=== PATIENT | male | born 1950 | race Caucasian/White ===

== ENCOUNTER 2018-01-16 09:55 | Day surgery (SDC) | payer OTHER, MEDICARE ==
[~2018-01-16] VITALS: Ht 182.9 cm; Wt 136.1 kg
[~2018-01-16 09:55] MED LIST: ALPHA LIPOIC A200 M1 PO; ASPIRIN325 MG PO; COLCHICINE0.6 M1 PO; GABAPENTIN100 MG PO; HYDROCHLOROTHIA25 MG PO; LIPITOR40 MG PO; LISINOPRIL20 MG PO; METFORMIN HCL1000 MG PO; NITROSTAT0.4 MG SL; OMEPRAZOLE20 MG PO; VITAMIN B122500 MCG PO; VITAMIN D250000 UNIT PO
--- NOTE | 2018-01-16 13:16 | NUR ---
01/16/18 1316 Susan Carbajal 1253 PT ARRIVED IN PACU AWAKE WITH NO C/O'S. ABD SOFT AND PASSING FLATUS. 1315 SIPPING ON WATER.
--- NOTE | 2018-01-17 07:57 | OR ---
[facility] [address] [place], [place] [address] Signed DATE OF OPERATION: 01/16/2018 SURGEON: Shamir Pedro MD PREOPERATIVE DIAGNOSIS: Personal history of colonic polyps. POSTOPERATIVE DIAGNOSIS: Minimal to moderate sigmoid diverticulosis. PROCEDURE: Colonoscopy without biopsy. ESTIMATED BLOOD LOSS: None. INDICATIONS: Gaston is a 67-year-old gentleman, who was asked to see me for a followup colonoscopy. He spoke of a colonoscopy number of years ago in the [facility]. More recently, he had one at the [facility] in [place], [place]. The doctor at the [facility] wanted him back in a couple of years. The doctors moved out of our area. Consequently, however, was asked to see me with respect to the above. He said he has no lower GI complaints. In the office, I gave him a pamphlet on colonoscopy. We looked at that together along with the risks and benefits including, but not limited to gas bloating, crampy abdominal pain, bleeding, perforation, requiring surgery, and missed diagnosis. We also discussed the need for IV conscious sedation. Gaston is a large man with a heavy full face, very thick neck. He has obstructive sleep apnea with CPAP and likes to drink up to 10 beers a day. Consequently, we asked an anesthesia provider to help us with increased monitoring and sedation with propofol. He had expressed understanding and wished to proceed. PROCEDURE NOTE: Gaston was taken into our endoscopy suite and placed in the left lateral decubitus position. He was given IV sedation with propofol per nurse credit report checker. A digital rectal exam was performed and I could barely reach the bottom of the prostate gland because Gaston is a large man with large buttocks. The adult colonoscope was then introduced and advanced all around into the cecum under direct visualization of camera without difficulty. His prep was average. The scope was then slowly withdrawn. We saw diverticula in the sigmoid colon. They were moderate in size and minimal to moderate in number, and scattered about. The rectum was unremarkable. Upon retroflexion of the Electronically Signed By: SHAMIR PEDRO MD 01/17/18 0757 PATIENT NAME: GASTON MINA OPERATIVE REPORT DATE OF : 46 REPORT #: [id number] PHYSICIAN: SHAMIR PEDRO MD PCP: SIDNEY HERNANDEZ MD REPORT IS CONFIDENTIAL AND NOT TO BE RELEASED WITHOUT AUTHORIZATION [address] [address] Signed scope, he has a couple tiny internal anal skin tags. After this, the gas was suctioned out and colonoscope removed. Gaston tolerated the procedure quite well. RECOMMENDATIONS: Gaston can follow up in 5 years for repeat colonoscopy due to his personal history of colonic polyps. Shamir Pedro MD ALB/MODL /[id number] cc: MD Sidney Ng MD Copies: SHAMIR PEDRO MD, MALCOLM MD ~ Electronically Signed By: SHAMIR PEDRO MD 01/17/18 0757 PATIENT NAME: GASTON MINA CHRIST OPERATIVE REPORT DATE OF : 46 REPORT #: [id number] PHYSICIAN: SHAMIR PEDRO MD PCP: SIDNEY HERNANDEZ MD REPORT IS CONFIDENTIAL AND NOT TO BE RELEASED WITHOUT AUTHORIZATION
== END 2018-01-16 13:16 | disposition home or self-care (01) ==
LOC: OPS 09:55 → DS 09:55 → OPS 10:45
PROVIDERS: Colon & Rectal Surgery
PROC: 0DJD8ZZ Inspection of Lower Intestinal Tract, Via Natural or Artificial Opening Endoscopic (ICD-10-PCS; principal; 2018-01-16 13:15)
DX: Z12.11 Encounter for screening for malignant neoplasm of colon (principal); K57.30 Diverticulosis of large intestine without perforation or abscess without bleeding; K64.4 Residual hemorrhoidal skin tags; E78.00 Pure hypercholesterolemia, unspecified; I10 Essential (primary) hypertension; J44.9 Chronic obstructive pulmonary disease, unspecified; K21.9 Gastro-esophageal reflux disease without esophagitis; E78.5 Hyperlipidemia, unspecified; E66.9 Obesity, unspecified; E11.42 Type 2 diabetes mellitus with diabetic polyneuropathy; G47.30 Sleep apnea, unspecified; Z86.010 Personal history of colon polyps; Z88.7 Allergy status to serum and vaccine; Z91.09 Other allergy status, other than to drugs and biological substances; Z79.82 Long term (current) use of aspirin; Z79.84 Long term (current) use of oral hypoglycemic drugs; Z79.899 Other long term (current) drug therapy; Z68.41 Body mass index [BMI] 40.0-44.9, adult
CPT/HCPCS: J2704; J7120